=== PATIENT | female | born 1985 | race Caucasian/White ===

== ENCOUNTER 2018-05-11 10:30 | Observation (INO) | payer OTHER ==
[~2018-05-11] VITALS: Ht 170.2 cm; Wt 92.5 kg
[2018-05-11 11:43] VITALS: BP 110/63
== END 2018-05-11 12:30 | disposition home or self-care (01) ==
LOC: 4S 10:30
PROVIDERS: ADMIT Obstetrics & Gynecology; ATTEND Obstetrics & Gynecology
DX: O48.0 Post-term pregnancy (principal); O26.893 Other specified pregnancy related conditions, third trimester; R10.2 Pelvic and perineal pain; Z3A.40 40 weeks gestation of pregnancy
CPT/HCPCS: 59025; G0378

== ENCOUNTER 2018-05-14 11:32 | Inpatient (IN) | payer OTHER ==
[~2018-05-14] VITALS: Ht 170.2 cm; Wt 92.1 kg
[2018-05-14] MEDS ORDERED: RINGERS SOLUTION,LACTATED 1,000 ML IV PRN (11:35)
[2018-05-14] MEDS ORDERED: OXYTOCIN 30 UNITS/LACT RINGERS 500 ML IV ONE (11:35)
[2018-05-14] MEDS ORDERED: LIDOCAINE/PF 1% 30 ML VIAL INJ PRN (11:45)
[2018-05-14] MEDS ORDERED: METOCLOPRAMIDE HCL 5 MG/ML 2 ML VIAL IVP PRN (11:45)
[2018-05-14] MEDS ORDERED: CITRIC ACID/SODIUM CITRATE 30 ML SOLUTION UDCUP PO PRN (11:45)
[2018-05-14] MEDS ORDERED: OXYGEN THERAPY IH SCH (11:45)
[2018-05-14] MEDS ORDERED: METHYLERGONOVINE MALEATE 0.2 MG/ML VIAL IM PRN (11:45)
[2018-05-14] MEDS ORDERED: PREN1TAB80 PO (12:07)
[2018-05-14] MEDS ORDERED: DINOPROSTONE 10 MG VAGINAL SUPPOSITORY VG ONE (12:15)
[2018-05-14 12:48] LABS: BASOPHILS % (AUTO) 0.1 % (0.0-2.0); EOSINOPHILS % (AUTO) 0.7 % (1.0-6.0); HEMATOCRIT 34.9 % (36-46); LYMPHOCYTES # (AUTO) 1.4 K/uL (1.0-4.8); MEAN CORPUSCULAR HEMOGLOBIN 30.3 pg (26.0-34.0); MEAN CORPUSCULAR HGB CONC 34.2 G/dL (31.0-37.0); MEAN CORPUSCULAR VOLUME 89 fL (80-100); MONOCYTES # (AUTO) 0.8 K/uL (0.1-1.0); MONOCYTES % (AUTO) 9.1 % (2.0-9.0); NEUTROPHILS # (AUTO) 6.3 K/uL (1.8-7.7); NEUTROPHILS % (AUTO) 74.1 % (40.0-70.0); PLATELET COUNT (AUTO) 182 K/uL (150-450); RED BLOOD CELL COUNT(AUTO) 3.95 MIL/uL (4.00-5.20); RED CELL DISTRIBUTION WIDTH 14.4 % (11.5-14.5)
[2018-05-14 14:00] VITALS: BP 107/61
[2018-05-14] MEDS: FentaNYL CITRATE-PF 100 MCG/2 ML VIAL IVP PRN ×4 (17:02→18:32)
[2018-05-14] MEDS ORDERED: ROPIVACAINE HCL/PF 0.2% 100 ML ED ONE (18:51)
[2018-05-14] MEDS: RINGERS SOLUTION,LACTATED 1,000 ML IV SCH ×2 (19:14→22:20)
[2018-05-14] MEDS ORDERED: OXYTOCIN 30 UNITS/LACT RINGERS 500 ML IV PRN (23:20)
[2018-05-15] MEDS ORDERED: LIDOCAINE 2%/EPI 1:200,000/PF 20 ML VIAL ONE (02:19)
[2018-05-15] MEDS ORDERED: NALBUPHINE HCL 10 MG/ML VIAL IVP PRN ×3 (03:00→03:45)
[2018-05-15] MEDS ORDERED: DEXAMETHASONE SOD PHOS 4 MG/ML VIAL IVP PRN (03:00)
[2018-05-15] MEDS ORDERED: MEPERIDINE-PF 25 MG/ML VIAL IVP PRN (03:00)
[2018-05-15] MEDS ORDERED: ACETAMINOPHEN 1000 MG/ISO-OSM 100 ML IV ONE ×2 (03:00→04:10)
[2018-05-15] MEDS ORDERED: FentaNYL CITRATE-PF 100 MCG/2 ML VIAL IVP PRN ×4 (03:00→03:45)
[2018-05-15] MEDS ORDERED: ONDANSETRON HCL 4 MG/2 ML VIAL IVP PRN ×2 (03:00→03:45)
[2018-05-15] MEDS ORDERED: DiphenhydrAMINE HCL 50 MG/ML VIAL IVP PRN ×2 (03:00→03:45)
[2018-05-15] MEDS ORDERED: GUM MASTIC/STORAX/MSAL/ALCOHOL LIQUID 0.67 ML VIAL TP ONE (03:28)
[2018-05-15] MEDS ORDERED: OXYTOCIN 30 UNITS/LACT RINGERS 500 ML IV ONE (03:41)
[2018-05-15] MEDS ORDERED: RINGERS SOLUTION,LACTATED 1,000 ML IV SCH (03:41)
[2018-05-15] MEDS ORDERED: LANOLIN 7 GM OINTMENT TP PRN (03:45)
[2018-05-15] MEDS ORDERED: OxyCODONE HCL/ACETAMINOPHEN 5-325 MG TABLET PO PRN ×2 (03:45)
[2018-05-15] MEDS ORDERED: MORPHINE SULFATE 10 MG/ML SYRINGE IVP PRN (03:45)
[2018-05-15] MEDS ORDERED: NALOXONE HCL 0.4 MG/ML VIAL IVP PRN (03:45)
[2018-05-15] MEDS: RINGERS SOLUTION,LACTATED 1,000 ML IV SCH (07:41)
[2018-05-15] MEDS ORDERED: OXYGEN THERAPY IH SCH ×2 (08:00)
[2018-05-15] MEDS ORDERED: MORPHINE SULFATE/PF 0.5 MG/ML 10 ML AMP IVP ONE (12:00)
[2018-05-15] MEDS ORDERED: PROPOFOL 1% 20 ML VIAL IVP ONE (12:00)
[2018-05-15] MEDS ORDERED: OXYTOCIN 10 UNITS/ML VIAL IM ONE (12:00)
[2018-05-15] MEDS: ACETAMINOPHEN 1000 MG/ISO-OSM 100 ML IV SCH ×2 (12:04→20:04)
[2018-05-15] MEDS: MAGNESIUM HYDROXIDE SUSPENSION 30 ML UDCUP PO SCH (21:08)
[2018-05-16] MEDS: IBUPROFEN 800 MG TABLET PO PRN ×3 (03:02→21:00)
[2018-05-16 06:34] LABS: BASOPHILS % (AUTO) 0.2 % (0.0-2.0); EOSINOPHILS % (AUTO) 0.3 % (1.0-6.0); HEMATOCRIT 26.7 % (36-46); HEMOGLOBIN 9.2 g/dL (12.0-16.0); LYMPHOCYTES % (AUTO) 5.9 % (22.0-44.0); MEAN CORPUSCULAR HEMOGLOBIN 30.7 pg (26.0-34.0); MEAN CORPUSCULAR HGB CONC 34.4 G/dL (31.0-37.0); MEAN CORPUSCULAR VOLUME 89 fL (80-100); NEUTROPHILS # (AUTO) 15.2 K/uL (1.8-7.7); PLATELET COUNT (AUTO)-OB 143 K/uL (150-450); RED CELL DISTRIBUTION WIDTH 14.4 % (11.5-14.5)
[2018-05-16 06:56] LABS: NEUTROPHILS % (AUTO) 87.6 % (40.0-70.0)
[2018-05-16] MEDS: MAGNESIUM HYDROXIDE SUSPENSION 30 ML UDCUP PO SCH ×2 (11:49→21:00)
[2018-05-17] MEDS: IBUPROFEN 800 MG TABLET PO PRN (04:22)
[2018-05-17] MEDS ORDERED: IBUP-2071 PO (11:24)
[2018-05-17] MEDS ORDERED: DSS100 PO (11:25)
[2018-05-17] MEDS ORDERED: FERR-89 PO (11:26)
== END 2018-05-17 14:00 | disposition home or self-care (01) | DRG 788 ==
LOC: 4S 11:32 → OBSVTOIN 11:32 → 4S 05-15 05:28
PROVIDERS: ADMIT Obstetrics & Gynecology; ATTEND Obstetrics & Gynecology
PROC: 3E02340 Introduction of Influenza Vaccine into Muscle, Percutaneous Approach (ICD-10-PCS; 2018-05-14)
PROC: 10D00Z1 Extraction of Products of Conception, Low, Open Approach (ICD-10-PCS; principal; 2018-05-15)
DX: O76 Abnormality in fetal heart rate and rhythm complicating labor and delivery (principal); Z3A.40 40 weeks gestation of pregnancy; Z37.0 Single live birth; Z23 Encounter for immunization; O62.2 Other uterine inertia
CPT/HCPCS: 86850; 86900; 86901; 90686; J0131; J0690; J2274; J2590; J2704; J2765; J2795; J3010; J7120